=== PATIENT | female | born 1935 | race Caucasian/White ===

== ENCOUNTER → 2016-08-16 | Outpatient (CLI) | payer MEDICARE, OTHER ==
--- NOTE | 2016-08-20 14:54 | MAM ---
EXAM DESCRIPTION: Diagnostic Mammo,Bilateral (accession [id number]), Breast,Right (accession [id number]) CLINICAL HISTORY: 81 years, Female, Screening mammogram COMPARISON: None TECHNIQUE: CC, true lateral and MLO digital mammograms with computer aided detection. Limited bilateral breast ultrasounds within the area of interest of the upper outer quadrants bilaterally. FINDINGS: There are scattered fibroglandular densities. There is no dominant mass nor any suspicious microcalcifications. Benign microcalcifications are present. Bilateral limited breast ultrasounds are unremarkable. IMPRESSION: BI-RADS 2: BENIGN FOLLOW-UP: Routine mammography screening. According to the [employer], yearly mammograms are recommended starting at age 40 and continuing as long as a woman is in good health. Any breast change noted on a breast self-exam should be reported promptly to the patient's healthcare provider. Breast MRI is recommended for women with an approximately 20-25% or greater lifetime risk of breast cancer, including women with a strong family history of breast or ovarian cancer and women who have been treated for Hodgkin's disease. A negative Mammography report should not discourage follow up or biopsy of a clinically significant finding and/or abnormality. Dense breast tissue may obscure neoplasms. Electronically signed by: Jose Luis Wolfe MD 08/20/2016 2:53 PM CDT
== END | disposition home or self-care (01) ==
LOC: MAMMO 15:05
PROVIDERS: ATTEND Emergency Medicine
DX: R92.8 Other abnormal and inconclusive findings on diagnostic imaging of breast (principal)